=== PATIENT | female | born 1945 | race Caucasian/White ===

== ENCOUNTER → 2017-01-21 | Outpatient (CLI) | payer MEDICARE, OTHER ==
[~2017-01-21] MED LIST: ANTIVERT 25MG25 MG PO; CARTIA XT; CLARITIN 1010 MG/TAB PO; INDERAL60 MG PO; LEVOXYL0.112 MG PO; LIPITOR 10MG10 MG PO; MICARDIS HCT 251 TAB PO; PRILOTC; TOPAMAX 25MG25 M1 PO
== END ==
LOC: MC.RAD 08:52
DX: Z12.31 Encounter for screening mammogram for malignant neoplasm of breast (principal)
CPT/HCPCS: G0202

== ENCOUNTER 2017-09-27 06:50 | Emergency (ER) | payer MEDICARE, OTHER ==
[~2017-09-27] VITALS: Ht 165.1 cm; Wt 72.7 kg
[2017-09-27 06:58] VITALS: TEMP 97.7
[2017-09-27] MEDS ORDERED: GLUCOPHAGE500 MG/TAB PO (07:03)
[2017-09-27] MEDS ORDERED: AMOXICILLIN/CLA1 TA1 PO (07:58)
[2017-09-27] MEDS ORDERED: SUDAFED30 MG PO (07:58)
[2017-09-27 08:54] VITALS: BP 131/82; PULSE 66
== END 2017-09-27 08:55 | disposition home or self-care (01) ==
LOC: COL.ER 06:50
DX: S02.2XXA Fracture of nasal bones, initial encounter for closed fracture (principal); S62.612A Displaced fracture of proximal phalanx of right middle finger, initial encounter for closed fracture; E11.9 Type 2 diabetes mellitus without complications; Z85.3 Personal history of malignant neoplasm of breast; Z79.84 Long term (current) use of oral hypoglycemic drugs; W00.0XXA Fall on same level due to ice and snow, initial encounter; Y93.01 Activity, walking, marching and hiking; Y92.410 Unspecified street and highway as the place of occurrence of the external cause

== ENCOUNTER → 2018-03-16 | Outpatient (CLI) | payer MEDICARE, OTHER ==
[~2018-03-16] MED LIST changes: +AMOXICILLIN/CLA1 TA1 PO; -CARTIA XT; +CARTIA XT180 MG PO; +GLUCOPHAGE500 MG/TAB PO; +K-TAB20 PO; +OCUVITE1 TA1 PO; -PRILOTC; +PRILOTC PO; +SUDAFED30 MG PO; -TOPAMAX 25MG25 M1 PO; +TOPAMAX50 MG PO; +VITAMIN D31000 I1 PO
== END ==
LOC: MC.RAD 08:16
DX: Z12.31 Encounter for screening mammogram for malignant neoplasm of breast (principal); Z85.3 Personal history of malignant neoplasm of breast

== ENCOUNTER → 2019-03-19 | Outpatient (CLI) | payer MEDICARE, OTHER | LOC: MC.RAD 08:53 | DX: Z12.31 Encounter for screening mammogram for malignant neoplasm of breast (principal); Z85.3 Personal history of malignant neoplasm of breast ==

== ENCOUNTER → 2020-03-24 | Outpatient (CLI) | payer MEDICARE, OTHER | LOC: MC.RAD 10:45 | DX: Z12.31 Encounter for screening mammogram for malignant neoplasm of breast (principal); N63.10 Unspecified lump in the right breast, unspecified quadrant; Z90.12 Acquired absence of left breast and nipple ==

== ENCOUNTER → 2021-05-05 | Outpatient (CLI) | payer MEDICARE, OTHER | LOC: MC.RAD 09:44 | DX: Z12.31 Encounter for screening mammogram for malignant neoplasm of breast (principal) ==

== ENCOUNTER → 2022-05-11 | Outpatient (CLI) | payer MEDICARE, OTHER | LOC: MC.RAD 10:09 | DX: Z12.31 Encounter for screening mammogram for malignant neoplasm of breast (principal) ==

== ENCOUNTER → 2023-07-07 | Outpatient (CLI) | payer MEDICARE, OTHER ==
[2005-12-07 14:35] VITALS: TEMP 99
== END ==
LOC: MC.RAD 08:38
DX: Z12.31 Encounter for screening mammogram for malignant neoplasm of breast (principal)